=== PATIENT | male | born 1995 | race Caucasian/White ===

== ENCOUNTER 2019-11-09 09:27 | Emergency (ER) | payer OTHER ==
[~2019-11-09] VITALS: Ht 193 cm; Wt 90.7 kg
== END 2019-11-09 13:15 | disposition home or self-care (01) ==
LOC: ER 09:27
DX: R20.0 Anesthesia of skin (principal); R06.02 Shortness of breath; Z03.818 Encounter for observation for suspected exposure to other biological agents ruled out

== ENCOUNTER 2020-05-12 12:55 | Emergency (ER) | payer OTHER ==
[~2020-05-12] VITALS: Ht 193 cm; Wt 90.7 kg
== END 2020-05-12 18:08 | disposition home or self-care (01) ==
LOC: ER 12:55
DX: S05.12XA Contusion of eyeball and orbital tissues, left eye, initial encounter (principal); S20.211A Contusion of right front wall of thorax, initial encounter; W18.39XA Other fall on same level, initial encounter; Y93.89 Activity, other specified; Y92.89 Other specified places as the place of occurrence of the external cause; Y99.8 Other external cause status; Z03.818 Encounter for observation for suspected exposure to other biological agents ruled out

== ENCOUNTER 2021-01-25 21:52 | Emergency (ER) | payer OTHER ==
[~2021-01-25] VITALS: Ht 193 cm; Wt 136.1 kg
[2021-01-26] MEDS ORDERED: ORPHENADRINE C100 MG PO (02:42)
[2021-01-26] MEDS ORDERED: KETO10TA2 PO (02:42)
== END 2021-01-26 02:51 | disposition home or self-care (01) ==
LOC: ER 21:52
DX: M54.2 Cervicalgia (principal); J32.0 Chronic maxillary sinusitis; J32.3 Chronic sphenoidal sinusitis; R51.9 Headache, unspecified; R20.0 Anesthesia of skin; R11.10 Vomiting, unspecified; Z03.818 Encounter for observation for suspected exposure to other biological agents ruled out

== ENCOUNTER 2022-06-10 12:35 | Emergency (ER) | payer OTHER ==
[~2022-06-10] VITALS: Ht 193 cm; Wt 94.3 kg
[~2022-06-10 12:35] MED LIST: KETO10TA2 PO; ORPHENADRINE C100 MG PO
== END 2022-06-10 17:27 | disposition home or self-care (01) ==
LOC: ER 12:35
DX: M62.838 Other muscle spasm (principal); R07.89 Other chest pain